=== PATIENT | male | born 1985 | race Caucasian/White ===

== ENCOUNTER 2017-06-13 10:51 | Emergency (ER) | payer OTHER ==
[2017-06-13 10:56] VITALS: BP 127/80; PULSE 82; RESP 17; TEMP 98.2; O2SAT 97
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
== END 2017-06-13 11:40 | disposition home or self-care (01) ==
DX: S80.01XA Contusion of right knee, initial encounter (principal); S80.02XA Contusion of left knee, initial encounter; V46.6XXA Car passenger injured in collision with other nonmotor vehicle in traffic accident, initial encounter; Y92.410 Unspecified street and highway as the place of occurrence of the external cause